=== PATIENT | female | born 1980 | race Two or more races ===

== ENCOUNTER 2016-04-05 21:11 | Emergency (ER) | payer MEDICAID ==
[~2016-04-05] VITALS: Ht 167.6 cm; Wt 99.8 kg
[2016-04-05 21:11] VITALS: BP 156/59
[2016-04-05] MEDS ORDERED: IBUPROFEN600 MG ORAL (21:40)
[2016-04-05] MEDS ORDERED: REGLAN10 M1 ORAL (21:40)
--- NOTE | 2016-04-05 22:15 | Emergency Room Report ---
History of Present Illness General Chief Complaint: Headache Source: Patient, EMS Present Illness HPI 35 YO F with 2-3 days of intermittent right frontal headache. No assoc nausea/ vomiting, neck pain/stiffness, fever/chills. States pain is worse from the "water pill component" of her HTN medication so she has also not been taking that. She also thought it was assoc with her DM but checked sugar and it has been ~100 last couple of days. Denies history of migraines, trauma. Has not taken any OTC meds for headache. Allergies: Coded Allergies: ACETAMINOPHEN (Verified Allergy, Unknown, 04/05/16) HYDROCODONE (Verified Allergy, Unknown, 04/05/16) Patient History Past Medical History: DM, HTN Past Surgical History: none Pertinent Family History: none Social History: Denies: alcohol use, drug use, smoking Last Menstrual Period: 04/02/16 Now: No Immunizations: UTD Reviewed Nursing Documentation: PMH: Agreed, PSxH: Agreed Nursing Documentation-PMH Hx Hypertension: Yes Hx Diabetes: Yes Review of Systems All Other Systems: negative except mentioned in HPI Physical Exam Vital Signs Date Time Temp Pulse Resp B/P Pulse Ox O2 Delivery O2 Flow Rate FiO2 04/05/16 21:08 97.7 118 15 156/59 100 Sp02 EP Interpretation: reviewed, normal General Appearance: normal inspection, well appearing, no apparent distress, alert, GCS 15, non-toxic, obese Head: normocephalic, atraumatic Eyes: bilateral eye EOMI, bilateral eye PERRL ENT: normal ENT inspection, hearing grossly normal, normal voice Neck: normal inspection, full range of motion, supple, no bony tend Respiratory: normal inspection, lungs clear, normal breath sounds, no respiratory distress, no retraction, no wheezing Cardiovascular #1: regular rate, rhythm, no edema Gastrointestinal: normal inspection, normal bowel sounds, non tender, soft, no guarding, no hernia Genitourinary: no CVA tenderness Musculoskeletal: normal inspection, back normal, normal range of motion, Ashley' s Sign negative Neurologic: normal inspection, alert, oriented x3, responsive, hand cigar maker III-XII nml as tested, motor strength/tone normal, speech normal Psychiatric: normal inspection, judgement/insight normal, mood/affect normal Skin: normal inspection, normal color, no rash Medical Decision Making Diagnostic Impression: Primary Impression: Headache Qualified Codes: G44.209 - Tension-type headache, unspecified, not intractable ER Course 35 YO F with headache. Likely tension vs migraine. VSS. BP likely elevated d/t pain. Low suspicion for HTN emergency/urgency Afebrile. Low suspicion for SAH or meningitis given well appearance, absence of focal neuro deficits, absence of meningismus, normal vital signs, and duration and intensity of headache. PO Meds given with improvement Headache resolved Advised compliance with PO meds for HTN Neuro exam serially negative for focal deficits Vitals stable on discharge F/up with PMD with referral for Neurologist as needed for recurrent headaches DC home Last Vital Signs Date Time Temp Pulse Resp B/P Pulse Ox O2 Delivery O2 Flow Rate FiO2 04/05/16 21:08 97.7 118 15 156/59 100 Status: improved Disposition: HOME, SELF-CARE Condition: Improved Scripts Ibuprofen* (MOTRIN*) 600 Mg Tablet 800 MG ORAL THREE TIMES A DAY, #30 TAB 0 Refills Prov: SALINAS MARIA M.D. 04/05/16 Metoclopramide Hcl* (REGLAN*) 10 Mg Tablet 10 MG ORAL BID for 7 Days, #20 TAB Prov: SALINAS MARIA M.D. 04/05/16 Patient Instructions: Tension Headache Additional Instructions: - Take ibuprofen with reglan up to 2x a day for headache - Continue taking blood pressure medication as prescribed - Follow up with your doctor in 2-3 days SALINAS MARIA M.D. Apr 05, 2016 22:15
[2016-04-05 22:23] VITALS: BP 149/63
== END 2016-04-05 22:23 | disposition home or self-care (01) ==
LOC: EDBD 21:11 → EMR 21:40
DX: R51 Headache (principal); E11.9 Type 2 diabetes mellitus without complications; I10 Essential (primary) hypertension; Z88.6 Allergy status to analgesic agent
CPT/HCPCS: 99284

== ENCOUNTER 2016-08-09 22:45 | Emergency (ER) | payer MEDICAID ==
[~2016-08-09] VITALS: Ht 162.6 cm; Wt 108.9 kg
[~2016-08-09 22:45] MED LIST: IBUPROFEN600 MG ORAL; REGLAN10 M1 ORAL
[2016-08-09] MEDS ORDERED: METFORMIN HCL500 M1 ORAL (23:05)
[2016-08-09] MEDS ORDERED: BENAZEPRIL HCL20 MG ORAL (23:05)
[2016-08-09] MEDS ORDERED: ACETAMINOPHEN-1 EAC1 ORAL (23:35)
[2016-08-09] MEDS ORDERED: ZITHROMAX250 MG ORAL (23:35)
[2016-08-09] MEDS ORDERED: IBUPROFEN600 MG ORAL (23:37)
[2016-08-09] MEDS ORDERED: Ketorolac 60mg Inj IM ONE (23:45)
[2016-08-09] MEDS ORDERED: Dexamethasone Elixir 0.25mg/2.5ml ORAL ONE (23:45)
--- NOTE | 2016-08-09 23:55 | Emergency Room Report ---
History of Present Illness General Chief Complaint: Sore Throat Source: Patient Present Illness HPI 36YOF with 2 weeks sore throat. No fever/chills, cough,. rhinorrhea. Taking OTC ibuprofen with improvement. Denies coughing up secretions, change in voice , chest pain, SOB. Has not taken Abx since. Allergies: Coded Allergies: ACETAMINOPHEN (Verified Allergy, Unknown, 08/09/16) HYDROCODONE (Verified Allergy, Unknown, 08/09/16) Patient History Past Medical History: none Past Surgical History: none Pertinent Family History: none Social History: Denies: alcohol use, drug use, smoking Last Menstrual Period: 3 days ago Now: No Immunizations: UTD Reviewed Nursing Documentation: PMH: Agreed, PSxH: Agreed Nursing Documentation-PMH Past Medical History: No History, Except For Hx Hypertension: Yes Hx Diabetes: Yes Review of Systems All Other Systems: negative except mentioned in HPI Physical Exam Vital Signs Date Time Temp Pulse Resp B/P Pulse Ox O2 Delivery O2 Flow Rate FiO2 08/09/16 23:01 98.4 76 16 122/80 99 Room Air Sp02 EP Interpretation: reviewed, normal General Appearance: normal inspection, well appearing, no apparent distress, alert, GCS 15, non-toxic Head: normocephalic, atraumatic Eyes: bilateral eye EOMI, bilateral eye PERRL ENT: normal ENT inspection, hearing grossly normal, normal pharynx, no angioedema, normal voice, TMs + canals normal, uvula midline, tonsillar swelling , other Neck: normal inspection, full range of motion, supple, no bony tend Respiratory: normal inspection, lungs clear, normal breath sounds, no respiratory distress, no retraction, no wheezing Cardiovascular #1: regular rate, rhythm, no edema Gastrointestinal: normal inspection, normal bowel sounds, non tender, soft, no guarding, no hernia Genitourinary: no CVA tenderness Musculoskeletal: normal inspection, back normal, normal range of motion, Ashley' s Sign negative Neurologic: normal inspection, alert, oriented x3, responsive, corrugated fastener driver III-XII nml as tested, motor strength/tone normal, speech normal Psychiatric: normal inspection, judgement/insight normal, mood/affect normal Skin: normal inspection, normal color, no rash Medical Decision Making Diagnostic Impression: Primary Impression: Sore throat ER Course No strep throat. VSS. Afebrile Airway patent Enlarged tonsils bilaterally PO decadron and IM toradol given with improvement in ED PMD followup DC home Last Vital Signs Date Time Temp Pulse Resp B/P Pulse Ox O2 Delivery O2 Flow Rate FiO2 08/09/16 23:01 98.4 76 16 122/80 99 Room Air Status: improved Disposition: HOME, SELF-CARE Condition: Improved Scripts Ibuprofen* (MOTRIN*) 600 Mg Tablet 600 MG ORAL THREE TIMES A DAY for sore throat, #30 TAB 0 Refills Prov: SALINAS MARIA M.D. 08/09/16 Patient Instructions: Sore Throat Additional Instructions: - Take ibuprofen up to 3x a day with food for pain - Follow up with your doctor in 1 week SALINAS MARIA M.D. August 09, 2016 23:55
[2016-08-10] VITALS: BP_SYST 123; BP_SYST 127; BP_DIAS 74
== END 2016-08-10 | disposition home or self-care (01) ==
LOC: EMR 23:45
DX: J02.9 Acute pharyngitis, unspecified (principal); I10 Essential (primary) hypertension; E11.9 Type 2 diabetes mellitus without complications; Z88.6 Allergy status to analgesic agent
CPT/HCPCS: 96372; 99283; J8540

== ENCOUNTER 2016-10-05 15:59 | Emergency (ER) | payer MEDICAID ==
[~2016-10-05] VITALS: Ht 167.6 cm; Wt 131.5 kg
[~2016-10-05 15:59] MED LIST changes: +ACETAMINOPHEN-1 EAC1 ORAL; +BENAZEPRIL HCL20 MG ORAL; +METFORMIN HCL500 M1 ORAL; +ZITHROMAX250 MG ORAL
[2016-10-05 16:15] VITALS: BP 113/67
--- NOTE | 2016-10-05 16:22 | Emergency Room Report ---
History of Present Illness General Chief Complaint: Flu Like Symptoms Source: Patient, Medical Record Present Illness HPI 36-year-old female presents to the emergency department complaining of 10 out of 10 in severity sore throat x2 days. Patient reports chills she denies fevers, denies. contacts or recent travel. Patient denies cough she reports rhinorrhea. She denies changes to voice , rashes, abdominal pain, neck stiffness or pain. Denies CP, Palpitations, LOC, AMS, dizziness, Changes in Vision, Sensation, paresthesias, or a sudden severe headache. Pt has been taking tylenol. Allergies: Coded Allergies: ACETAMINOPHEN (Verified Allergy, Unknown, 08/09/16) HYDROCODONE (Verified Allergy, Unknown, 08/09/16) Patient History Past Medical History: see triage record Past Surgical History: none Pertinent Family History: none Last Menstrual Period: 09/27/16 Now: No Reviewed Nursing Documentation: PMH: Agreed, PSxH: Agreed Nursing Documentation-PMH Past Medical History: No History, Except For Hx Hypertension: Yes Hx Diabetes: Yes History Of Psychiatric Problem: Yes - Anxiety Review of Systems All Other Systems: negative except mentioned in HPI Physical Exam Vital Signs Date Time Temp Pulse Resp B/P Pulse Ox O2 Delivery O2 Flow Rate FiO2 10/05/16 16:04 98.4 97 16 113/67 96 Room Air Sp02 EP Interpretation: reviewed, normal General Appearance: no apparent distress, alert, GCS 15, non-toxic Head: normocephalic, atraumatic Eyes: bilateral eye PERRL, bilateral eye normal inspection ENT: hearing grossly normal, normal pharynx, no angioedema, normal voice, TMs + canals normal, uvula midline, moist mucus membranes, nasal congestion, tonsillar swelling, pharyngeal erythema, tonsillar exudate Neck: full range of motion, no meningismus, no bony tend, supple/symm/no masses Respiratory: chest non-tender, lungs clear, normal breath sounds, speaking full sentences Cardiovascular #1: regular rate, rhythm, no edema Musculoskeletal: back normal, gait/station normal, normal range of motion, non- tender Neurologic: alert, oriented x3, responsive, motor strength/tone normal, sensory intact, speech normal Psychiatric: judgement/insight normal, memory normal, mood/affect normal Skin: normal color, no rash, warm/dry, well hydrated Lymphatic: no adenopathy Medical Decision Making PA Attestation Dr. Lundy is my supervising Physician whom patient management has been discussed with. Diagnostic Impression: Primary Impression: Pharyngitis, acute Qualified Codes: J02.9 - Acute pharyngitis, unspecified ER Course 36-year-old female presents to the emergency department complaining of 10 out of 10 in severity sore throat x2 days. Patient reports chills she denies fevers, denies. contacts or recent travel. Patient denies cough she reports rhinorrhea. She denies changes to voice , rashes, abdominal pain, neck stiffness or pain. Denies CP, Palpitations, LOC, AMS, dizziness, Changes in Vision, Sensation, paresthesias, or a sudden severe headache. Pt has been taking tylenol. Ddx considered but are not limited to: pharyngitis, strep, VEHICLE MODIFICATION TECHNICIAN, ludwigs angina, URI Vital signs: are WNL, pt. is afebrile H&PE are most consistent with: pharyngitis presumed strep, due to presence of exudates and tonsillar swelling. ORDERS: None required at this time as the diagnosis is clinical ED INTERVENTIONS: none required at this time. DISCHARGE: At this time pt. is stable for d/c to home. Will provide printed patient care instructions, and any necessary prescriptions. Care plan and follow up instructions have been discussed with the patient prior to discharge. Last Vital Signs Date Time Temp Pulse Resp B/P Pulse Ox O2 Delivery O2 Flow Rate FiO2 10/05/16 16:15 98.4 16 113/67 96 Room Air 10/05/16 16:15 97 Disposition: HOME, SELF-CARE Condition: Stable Scripts Ibuprofen* (MOTRIN*) 600 Mg Tablet 600 MG ORAL THREE TIMES A DAY, #30 TAB 0 Refills Prov: Lala Peres P.A. 10/05/16 Amoxicillin* (AMOXIL*) 500 Mg Capsule 500 MG ORAL BID for 10 Days, #20 CAP Prov: Lala Peres P.A. 10/05/16 Referrals: [facility],REFERRING (PCP) Patient Instructions: Pharyngitis, [id number] Additional Instructions: Take medications as directed. Follow up with a Primary Care Provider in 3-5 days, even if your symptoms have resolved. --Please review list of primary care clinics, if you do not already have a primary care provider Return sooner to ED if new symptoms occur, or current symptoms become worse. - Please note that this Emergency Department Report was dictated using [email or web address] registered nurse technology software, occasionally this can lead to erroneous entry secondary to interpretation by the dictation equipment. Lala Peres Oct 05, 2016 16:22
[2016-10-05] MEDS ORDERED: Ketorolac 60mg Inj IM ONE (16:45)
[2016-10-05] MEDS ORDERED: IBUPROFEN600 MG ORAL (16:50)
[2016-10-05] MEDS ORDERED: AMOXICILLIN500 MG ORAL (16:50)
[2016-10-05 17:03] VITALS: BP 113/67
== END 2016-10-05 17:03 | disposition home or self-care (01) ==
LOC: EMR 16:20
DX: J02.9 Acute pharyngitis, unspecified (principal); Z88.6 Allergy status to analgesic agent; I10 Essential (primary) hypertension; E11.9 Type 2 diabetes mellitus without complications
CPT/HCPCS: 96372; 99284

== ENCOUNTER 2019-04-14 14:17 | Emergency (ER) | payer MEDICAID ==
[~2019-04-14] VITALS: Ht 167.6 cm; Wt 108.9 kg
[~2019-04-14 14:17] MED LIST changes: +AMOXICILLIN500 MG ORAL
--- NOTE | 2019-04-14 14:26 | NUR ---
ED Nurse Note: Pt ambulated to ED with c/o sore throat started last night. VSS, no signs of acute distress. Placed on chair.
[2019-04-14 14:28] VITALS: BP 105/60
[2019-04-14] MEDS ORDERED: Augmentin 875mg Tab ORAL ONE (14:45)
--- NOTE | 2019-04-14 14:54 | Emergency Room Report ---
History of Present Illness General Chief Complaint: Sore Throat Source: Patient Present Illness HPI 38-year-old female with history of diabetes currently controlled with metformin and who is morbidly obese here complaining of 1 day of 10 out of 10 sore throat and bilateral tonsillar swelling. Has not taken medication for symptom relief. Is able to speak in full sentences and no drooling is noted. Tonsils are 3+ both sides. Patient has no breathing problem, vital signs are within normal limits. Denies any cough and congestion, fever and chills at this time. Denies chest pain, shortness of breath, palpitation, and other associated symptoms. Denies and reports her last menstrual period was 3 days ago. Allergies: Coded Allergies: ACETAMINOPHEN (Verified Allergy, Unknown, 08/09/16) HYDROCODONE (Verified Allergy, Unknown, 08/09/16) Patient History Past Medical History: see triage record Past Surgical History: unable to obtain Pertinent Family History: none Now: No Immunizations: UTD Reviewed Nursing Documentation: PMH: Agreed; PSxH: Agreed Nursing Documentation-PMH Past Medical History: No History, Except For Hx Hypertension: Yes Hx Diabetes: Yes Review of Systems All Other Systems: negative except mentioned in HPI Physical Exam Vital Signs Date Time Temp Pulse Resp B/P (MAP) Pulse Ox O2 Delivery O2 Flow Rate FiO2 04/14/19 14:22 98.1 68 17 105/60 (75) 99 Room Air Sp02 EP Interpretation: reviewed, normal General Appearance: no apparent distress, alert, GCS 15, non-toxic Head: normocephalic Eyes: bilateral eye normal inspection, bilateral eye PERRL ENT: tonsillar swelling, pharyngeal erythema, tonsillar exudate Neck: supple, no meningismus, no bony tend, other - Anterior cervical lymphadenopathy Respiratory: chest non-tender, lungs clear, normal breath sounds, no rhonchi, no wheezing, speaking full sentences Cardiovascular #1: regular rate, rhythm, no edema, no murmur Gastrointestinal: non tender, soft Genitourinary: no CVA tenderness Musculoskeletal: back normal Neurologic: alert, motor strength/tone normal, oriented x3, sensory intact, responsive, speech normal Psychiatric: judgement/insight normal, memory normal, mood/affect normal, no suicidal/homicidal ideation Skin: no rash Lymphatic: adenopathy - Anterior cervical lymphadenopathy Medical Decision Making PA Attestation All diagnoses and treatment plans were reviewed and discussed with my supervising physician Dr. Estrada Diagnostic Impression: Primary Impression: Strep pharyngitis ER Course 38-year-old female with history of diabetes currently controlled with metformin and who is morbidly obese here complaining of 1 day of 10 out of 10 sore throat and bilateral tonsillar swelling. Has not taken medication for symptom relief. Is able to speak in full sentences and no drooling is noted. Tonsils are 3+ both sides. Patient has no breathing problem, vital signs are within normal limits. Denies any cough and congestion, fever and chills at this time. Denies chest pain, shortness of breath, palpitation, and other associated symptoms. Denies and reports her last menstrual period was 3 days ago. Ddx considered but are not limited to: strep pharyngitis, URI, tonsillitis, peritonsillar abscess, influenza Vital signs: are WNL, pt. is afebrile H&PE are most consistent with: Strep pharyngitis ORDERS: Augmentin, prednisone, ibuprofen ED INTERVENTIONS: Augmentin, prednisone DISCHARGE: At this time pt. is stable for d/c to home. Will provide printed patient care instructions, and any necessary prescriptions. Care plan and follow up instructions have been discussed with the patient prior to discharge. Take medication as directed, follow-up with primary care provider, if difficulty breathing, swallowing, or drooling and tonsils are touching return to the emergency room immediately. Last Vital Signs Date Time Temp Pulse Resp B/P (MAP) Pulse Ox O2 Delivery O2 Flow Rate FiO2 04/14/19 14:28 98.1 72 17 105/60 99 Room Air Disposition: HOME, SELF-CARE Condition: Stable Scripts Ibuprofen* (MOTRIN*) 600 Mg Tablet 600 MG ORAL Q8H PRN for For Pain, #30 TAB 0 Refills Prov: Robin Parker 04/14/19 Prednisone* (PREDNISONE*) 20 Mg Tablet 40 MG ORAL DAILY for 5 Days, #10 TAB Prov: Robin Parker 04/14/19 Amoxicillin/Potassium Clav 875-125* (AUGMENTIN 875-125 TABLET*) 1 Each Tablet 1 TAB ORAL TWICE A DAY for 10 Days, #20 TAB Prov: Robin Parker 04/14/19 Patient Instructions: Strep Throat Additional Instructions: Take medication as directed, follow-up with your primary care provider, if worsening symptoms return to the emergency room Robin Parker Apr 14, 2019 14:54
[2019-04-14] MEDS ORDERED: IBUPROFEN600 MG ORAL (14:55)
[2019-04-14] MEDS ORDERED: AUGMENTIN 875-1 EAC1 ORAL (14:55)
[2019-04-14] MEDS ORDERED: PREDNISONE20 MG ORAL (14:55)
[2019-04-14 15:00] VITALS: BP 110/66
--- NOTE | 2019-04-14 15:00 | NUR ---
ER DISCHARGE NOTE: Pt is cleared to be discharge per ERMD,. Pt is AOx4, on RA, VSS. pt was given dc and prescription instructions, pt was able to verbalize understanding, pt id band removed. pt is able to ambulate with steady gait. Pt left ER with all belongings.
== END 2019-04-14 15:00 | disposition home or self-care (01) ==
LOC: EMR 14:53
DX: J02.0 Streptococcal pharyngitis (principal); E66.9 Obesity, unspecified; Z79.84 Long term (current) use of oral hypoglycemic drugs; Z88.6 Allergy status to analgesic agent; E11.9 Type 2 diabetes mellitus without complications; I10 Essential (primary) hypertension; Z68.38 Body mass index [BMI] 38.0-38.9, adult
CPT/HCPCS: J7512; Z7502; 99282